=== PATIENT | male | born 1995 | race Caucasian/White ===

== ENCOUNTER 2020-03-02 05:55 | Emergency (ER) | payer MEDICAID, SELFPAY ==
--- NOTE | 2020-03-02 06:01 | ED.GENADULT ---
HPI - General Adult General Stated complaint: TOOTH PAIN Time Seen by Provider: 03/02/20 05:58 History of Present Illness HPI narrative: Brought in by EMS for dental pain. Prior to my arrival in the room he was shouting and making a scene. He was saying that no one is allowed to touch him. I went to evaluated him and he shouted fuck you . He admits to using meth tonight. Related Data Allergies Allergy/AdvReac Type Severity Reaction Status Date / Time aripiprazole Allergy Unknown SEVERE Unverified 08/18/16 13:28 VOMITTING Review of Systems Review of Systems: ROS unobtainable: Yes unobtainable due to mental status [facility] Social History Social History (Updated 03/02/20 @ 06:21 by Joseph Cotto MD) Substance use type: amphetamines Comments Unable to obtain Exam Const: General: healthy appearing, no acute distress and alert Resp: Effort & Inspection: normal respiratory effort Skin: General skin exam: normal color Neuro: General: moves all extremities Speech: normal speech Gait exam (Neuro): Normal gait present Psych: Speech and movement: Psychomotor agitation in speech present Attitude: Belligerent attititude/behavior present Medical Decision Making MDM Narrative Medical decision making narrative: Patient refused evaluation and was belligereant to myself and staff. He was in no distress and had no indication that he was suffering from any emergent medical condition. Discharge Plan Discharge Clinical Impression: Methamphetamine abuse Patient Disposition: Home, Self-Care Condition: Stable Instructions: Antibiotic Form, Methamphetamine Abuse (ED) Follow-up/Referrals: UNKNOWN,DOCTOR [Primary Care Provider] -
--- NOTE | 2020-03-02 06:20 | PC.NURSE ---
Pt was brought in by ems for tooth pain. When pt arrived he was acting out and yelling at staff. Pt was demanding pain medication and admitted to taking meth. Pt was yelling at dr and demanded pain medication and refused to be treated so he was asked to leave. Pt then stormed out through the ems doors.
== END 2020-03-02 06:26 | disposition home or self-care (01) ==
LOC: ANHED 06:26
DX: F15.10 Other stimulant abuse, uncomplicated (principal)
CPT/HCPCS: 99281

== ENCOUNTER 2022-03-15 19:46 | Emergency (ER) | payer BC, SELFPAY ==
--- NOTE | 2022-03-15 19:51 | ED.URI ---
HPI - URI/Sore Throat General Chief Complaint: Upper Respiratory Infection Stated Complaint: uri Time Seen by Provider: 03/15/22 19:51 Source: patient Mode of arrival: ambulatory Limitations: no limitations History of Present Illness HPI Narrative: Addison is a 26-year-old male patient presenting to clinic today with complaints of possible sinus infection x1 week. He reports he has had slight fever, chills, sinus congestion, headache, and postnasal drip. MD elicited complaint: sore throat and nasal congestion Related Data Home Medications Medication Instructions Recorded Confirmed divalproex 500 mg tablet,delayed mg PO 03/15/22 release haloperidol 5 mg tablet mg 03/15/22 oxcarbazepine 300 mg tablet mg 03/15/22 risperidone 4 mg tablet mg 03/15/22 Allergies Allergy/AdvReac Type Severity Reaction Status Date / Time aripiprazole Allergy Unknown SEVERE Unverified 03/15/22 19:50 VOMITTING Review of Systems Review of Systems: Pertinent positives per HPI. Patient denies any rash, headache, visual changes, dizziness, shortness of breath, chest pain, palpitations, nausea, vomiting, diarrhea, constipation, abdominal pain, or any urinary issues. [facility] Social History Social History Substance use type: amphetamines Comments At the time of my signature, I reviewed and agree with the nursing past medical, surgical, social, and family history. There is no relevant family history pertinent to the patient complaint. Exam Narrative: General: Well-developed, well nourished, in no apparent distress Head: Normocephalic, atraumatic Eyes: Pupils equally round and reactive to light bilaterally, EOM intact, sclera and conjunctive clear, no discharge, lids normal Ears: TMs intact and clear, ear canals clear, no drainage, grossly hearing normal. Nose: Nares patent, green nasal discharge, severe inflammation with white striae, maxillary and frontal sinus tenderness. Mouth: Oral pharynx without lesions or masses, good dentition, MMM. Postnasal drip Neck: Supple, trachea midline, no enlargement of anterior or posterior cervical nodes, no thyroid masses or goiter palpable. Cardio: Regular rate and rhythm, s1 and s2 normal, no murmur appreciated. Resp: Clear to auscultation bilaterally, no rhonchi, rales, wheezing or rubs Course Course Emergency Course: Portions of this record may have been created with voice recognition software. Level of Care: Express Care Visit Vital Signs Vital signs: Vital signs reviewed MDM - URI/Sore Throat MDM Narrative Medical decision making narrative: At the time of visit patient is resting comfortably on the exam table. I suspect patient has acute bacterial rhinosinusitis. I will treat with a prescriptions for some prednisone and Augmentin. Supportive measures were discussed with the patient he voiced understanding of discharge instructions and agrees to treatment plan. Differential Diagnosis Differential diagnosis: Likely upper respiratory infection, otitis media, sinusitis, viral infection, bronchitis, influenza, pharyngitis and other (COVID) Discharge Plan Discharge Clinical Impression: Acute bacterial rhinosinusitis Patient Disposition: Home, Self-Care Condition: Stable Instructions: Antibiotic Form, Rhinosinusitis (ED) Additional Instructions: Take prescription medications only as prescribed-prednisone and Augmentin Increase fluids and stay well hydrated Tylenol/motrin for pain/fever Flonase and OTC antihistamines as directed Vicks vapor rub to open sinuses Sinus rinses for congestion Cepacol spray, cough drops, throat lozenges, warm tea with honey/lemon, gargle salt water to soothe throat BRAT diet for diarrhea Clear liquids x 24 hours then advance as tolerated for nausea/vomiting May return to the clinic if symptoms worsen Go to the ED if you develop a worsening in your condition- high
[2022-03-15 19:52] VITALS: BP 171/90; PULSE 124; RESP 16; TEMP 37.8; O2SAT 99
== END 2022-03-15 20:02 | disposition home or self-care (01) ==
PROVIDERS: Emergency Provider Nurse Practitioner Family
DX: J01.90 Acute sinusitis, unspecified (principal); B96.89 Other specified bacterial agents as the cause of diseases classified elsewhere
CPT/HCPCS: 99213; G0463

== ENCOUNTER 2024-03-05 14:25 | Emergency (ER) | payer BC, SELFPAY ==
[2024-03-05 14:28] VITALS: BP 149/82; PULSE 85; RESP 16; TEMP 36.8; O2SAT 99
--- NOTE | 2024-03-05 15:28 | ED.MALEGU ---
HPI - Male Genitourinary General Chief complaint: Urogenital-Male Stated complaint: STD CHECK Time Seen by Provider: 03/05/24 14:33 Source: patient Mode of arrival: ambulatory Limitations: no limitations History of Present Illness [facility] Narrative: this is a 28-year-old male who is concerned for possible STD. Reports that he was with his partner had a lot attacks sex recently what she told him she had herpes. He noticed a few days ago he had a blister-like lesion on the left side of the groin. he reports chronic HBV and no new lesions regarding that. Denies penile discharge, testicular swelling or pain. Denies fevers, chills, fatigue. Related Data Home Medications Medication Instructions Recorded Confirmed divalproex 500 mg tablet,delayed mg PO 03/15/22 release haloperidol 5 mg tablet mg 03/15/22 oxcarbazepine 300 mg tablet mg 03/15/22 risperidone 4 mg tablet mg 03/15/22 Allergies Allergy/AdvReac Type Severity Reaction Status Date / Time aripiprazole Allergy Unknown SEVERE Unverified 03/15/22 19:50 VOMITTING Review of Systems Review of Systems: All systems as dictated in [facility] Social History Social History Substance use type: amphetamines Exam Narrative: GENERAL: Well-appearing, well-nourished, and in no acute distress. HEAD: Normocephalic, atraumatic. EYES: PERRLA and EOMI. ENT: Nares clear, no rhinorrhea or epistaxis. Mucous membranes moist. Oropharynx without tonsillar hypertrophy exudate or other lesions. NECK: Supple. No adenopathy or masses. CHEST: No respiratory distress. Clear to auscultation. No wheezes rales or rhonchi HEART: Regular rate and rhythm. No murmur heard. Normal peripheral pulses. ABDOMEN: Soft, nontender, nondistended, normal active bowel sounds. MSK: Normal range of motion. No edema. SKIN: Warm, dry, no rash. NEURO: Alert and oriented x4. No focal deficits. PSYCH: Normal mood and affect. : there is a vesicular appearing lesion that is close and located in left groin. 2 surrounding small erythematous macules. No surrounding erythema or induration. No chancre. No discharge. no scrotal swelling or tenderness. Course Vital Signs Vital signs: Vital Signs Temperature 98.3 F 03/05/24 14:28 Pulse Rate 85 03/05/24 14:28 Respiratory Rate 16 03/05/24 14:28 Blood Pressure 149/82 H 03/05/24 14:28 Pulse Oximetry 99 03/05/24 14:28 Oxygen Delivery Room Air 03/05/24 14:28 Temperature 98.3 F 03/05/24 14:28 Pulse Rate 85 03/05/24 14:28 Respiratory Rate 16 03/05/24 14:28 Blood Pressure 149/82 H 03/05/24 14:28 Pulse Oximetry 99 03/05/24 14:28 Oxygen Delivery Room Air 03/05/24 14:28 MDM - Male Genitourinary MDM Narrative Medical decision making narrative: This is a 28-year-old male who presents to the ED for chief complaint of general lesion in the pubic area after exposure to possible herpes. Vitals are normal. Exam remarkable for the above. He is requesting STD testing and is specifically concerned for possible herpes. Exam is consistent with herpes. A viral PCR swab was obtained but the patient wanted to be discharged prior to results. Told him that clinically this is consistent with herpes an Rx for Valtrex was given. Pt will be discharged in stable condition. Return precautions given and supportive measures discussed. Pt is understanding and agreeable with plan for discharge and follow-up with PCP. Discharge Plan Discharge Clinical Impression: Genital lesion, male Patient Disposition: Home, Self-Care Condition: Stable Instructions: Antibiotic Form Additional Instructions: your exam was concerning for possible herpes. Please take Valtrex twice a day for 1 week and then for any recurrent episodes take 1 g once daily for 5 days. Follow-up with PCP If you have any new or worsening symptoms please return to the ER for f
[2024-03-05 17:04] LABS: Trichomonas Vag PCR NOT DETECTED (NOT DETECTE)
[2024-03-05 17:26] LABS: Chlamydia trachomatis NOT DETECTED (NOT DETECTE); Neisseria gonorrhoeae PCR NOT DETECTED (NOT DETECTE)
[2024-03-09 06:33] LABS: Herpes Simplex Type 1 DNA PCR Not Detected (Not Detected); Herpes Simplex Type 2 DNA PCR Not Detected (Not Detected)
== END 2024-03-05 15:59 | disposition home or self-care (01) ==
PROVIDERS: Emergency Provider Physician Assistant
DX: N50.9 Disorder of male genital organs, unspecified (principal)
CPT/HCPCS: 36415; 87491; 87529; 87591; 87661; 99283

== ENCOUNTER 2024-05-27 17:26 | Emergency (ER) | payer BC, SELFPAY ==
[2024-05-27 17:23] VITALS: BP 129/81; PULSE 84; RESP 12; TEMP 36.6; O2SAT 100
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
[2024-05-27 18:04] LABS: Basophils Percent Auto 0.4 % (0.2-1.2); Eosinophils Absolute Auto 0.1 K/mm3 (0-0.3); Eosinophils Percent Auto 0.9 % (0-4.4); Hemoglobin 15.1 g/dL (14.0-18.0); Immature Granulocyte Absolute 0.01 K/mm3 (0.00-0.031); Immature Granulocyte Percent A 0.1 % (0-0.5); Lymphocytes Absolute Auto 2.59 K/mm3 (0.9-3.2); Lymphocytes Percent Auto 33.6 % (18.3-44.2); Mean Corpuscular HGB Conc 35.1 g/dl (32-36); Mean Corpuscular Hemoglobin 30.9 pg (26-34); Mean Corpuscular Volume 87.9 fl (80-100); Mean Platelet Volume 9.3 fl (7.4-10.4); Monocytes Absolute Auto 0.6 K/mm3 (0.1-0.6); Monocytes Percent Auto 7.8 % (2.6-8.5); Neutrophils Absolute Auto 4.4 K/mm3 (1.3-6.7); Neutrophils Percent Auto 57.2 % (45.5-73.1); Platelet Count Result 219 k/mm3 (150-375); Red Blood Count 4.89 M/mm3 (4.6-6.20); Red Cell Distribution Width 12.1 % (11.5-14.5); White Blood Count 7.7 K/mm3 (4.5-10.0)
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
[2024-05-27 18:14] LABS: Ethanol 210 mg/dL (<10)
[2024-05-27 18:26] LABS: Barbiturate Screen Urine Negative (Negative); Benzodiazepines Screen Urine Negative (Negative)
[2024-05-27 18:31] LABS: Alanine Aminotransferase 26 U/L (6-50); Alkaline Phosphatase 79 U/L (38-126); Anion Gap 7 mmol/L (4-12); Aspartate Amino Transferase 29 U/L (17-59); Bilirubin,Total 0.4 mg/dL (0.2-1.3); Blood Urea Nitrogen 28 mg/dL (9-20); Calcium 8.6 mg/dL (8.4-10.2); Carbon Dioxide 26 mmol/L (22-30); Chloride 106 mmol/L (98-107); Estimated Glomerular Filt Rate > 60; Glucose 96 mg/dL (65-110); Potassium 3.4 mmol/L (3.4-5.0); Sodium 139 mmol/L (137-145)
[2024-05-27 18:34] LABS: Cannabinoid Screen Urine Negative (Negative); Cocaine Screen Urine Negative (Negative); Methadone Screen Urine Negative (Negative); Opiate Screen Urine Negative (Negative); Phencyclidine Screen Urine Negative (Negative)
--- NOTE | 2024-05-27 18:48 | PC.NURSE ---
Pt. refused final set of vital signs. Pt. is A&Ox4.
[2024-05-27 18:58] LABS: Amphetamine Screen Urine Negative (Negative)
== END 2024-05-27 18:52 | disposition home or self-care (01) ==
PROVIDERS: Student in an Organized Health Care Education/Training Program; Emergency Provider Emergency Medicine
DX: F10.129 Alcohol abuse with intoxication, unspecified (principal); Y90.7 Blood alcohol level of 200-239 mg/100 ml
CPT/HCPCS: 36415; 80053; 80307; 82077; 85025; 99283

== ENCOUNTER 2024-06-03 11:18 | Emergency (ER) | payer BC, SELFPAY ==
--- NOTE | ~2024-06-03 | CT_ITS ---
CT brain wo con Ordering provider: Ebony Hamilton APRN History: 28 years Male with . altered mental status . Comparison: None. Technique: CT of the head without contrast. Radiation reduction technique utilized.The dose-length product was 605.33 mGy-cm. FINDINGS: BRAIN PARENCHYMA AND CSF SPACES: Hypodensity in the right temporal lobe is noted which may be artifac tual but acute infarct cannot be excluded. Clinical correlation and further evaluation with MRI is ad vised. No midline shift, mass effect or hemorrhage. The brain parenchyma and CSF spaces are otherwis e normal. VISUALIZED PARANASAL SINUSES: Bilateral maxillary, frontal and ethmoid sinus disease. MASTOIDS: Well aerated. BONES: The bones appear intact. SOFT TISSUES: Visualized nasopharynx is normal. Superficial soft tissues are normal. IMPRESSION: No acute intracranial findings. Pansinusitis Reviewed, dictated and finalized at location A. [facility]
[2024-06-03 11:22] VITALS: BP 110/71; PULSE 97; RESP 16; TEMP 36.5; O2SAT 97
[2024-06-03 11:39] LABS: Glucose Point of Care 209 mg/dl (65-105)
--- NOTE | 2024-06-03 11:45 | PC.NURSE ---
[employer] [place] [employer] [employer] TECHNICIAN FOUND IN PT'S POSSESSIONS. CHARLIE KANG FROM SECURITY WAS NOTIFIED, CAME DOWN TO ED TO SECURE THE PARAPHERNALIA.
[2024-06-03 12:00] VITALS: BP 107/69; PULSE 88; RESP 16; O2SAT 100
[2024-06-03 13:00] VITALS: BP 110/78; PULSE 76; RESP 16; O2SAT 100
[2024-06-03 13:30] VITALS: BP 117/81; PULSE 74; RESP 16; O2SAT 100
--- NOTE | 2024-06-03 13:48 | ED.ALCOHOL ---
HPI - Alcohol General Chief Complaint: Alcohol Stated Complaint: ?ETOH History of Present Illness HPI narrative: Patient is a 28-year-old male who presents to the ER the EMS for alcohol intoxication. He was seen in this ER for the same symptoms approximately 1 week ago. Patient is difficult to arouse the time of examination. He is unable to verbalize any medical history or current symptoms. Related Data Home Medications ?Medication ?Instructions ?Recorded ?Confirmed ?Last Taken ?Type divalproex 500 mg tablet,delayed mg PO 03/15/22 Unknown History release haloperidol 5 mg tablet mg 03/15/22 Unknown History oxcarbazepine 300 mg tablet mg 03/15/22 Unknown History risperidone 4 mg tablet mg 03/15/22 Unknown History Allergies Allergy/AdvReac Type Severity Reaction Status Date / Time aripiprazole Allergy Unknown SEVERE Unverified 03/15/22 19:50 VOMITTING Review of Systems Review of Systems: All systems reviewed & are unremarkable except as noted in HPI and below PMFSH Social History Social History Substance use type: amphetamines Exam Narrative: GENERAL: Well appearing, well-nourished, non-toxic, in no acute distress. Lethargic HEAD: Normocephalic, atraumatic. NECK: Supple. No adenopathy, no masses. RESPIRATORY: Airway patent, respirations nonlabored. Clear to auscultation bilaterally, no rales, rhonchi, wheezing. CARDIOVASCULAR: Regular rate and rhythm without murmurs, rubs, or gallops. Peripheral pulses 2+ and equal bilaterally. ABDOMINAL: Soft, nontender, nondistended, no hepatosplenomegaly. Normoactive BS. MUSCULOSKELETAL: Moves all extremities. Strength/ROM intact without gross deformities. SKIN: Warm, dry, normal color. No rashes. NEURO: Unable to assess PSYCHIATRIC: Abnormal interaction. Course Vital Signs Vital signs: Vital Signs Temperature 36.5 C 06/03/24 11:22 Pulse Rate 97 06/03/24 11:22 Respiratory Rate 16 06/03/24 11:22 Blood Pressure 110/71 06/03/24 11:22 Pulse Oximetry 97 06/03/24 11:22 Oxygen Delivery Room Air 06/03/24 11:22 Temperature 36.5 C 06/03/24 11:22 Pulse Rate 74 06/03/24 13:30 Respiratory Rate 16 06/03/24 13:30 Blood Pressure 117/81 06/03/24 13:30 Pulse Oximetry 100 06/03/24 13:30 Oxygen Delivery Room Air 06/03/24 11:22 MDM - Alcohol MDM Narrative Medical decision making narrative: Patient is a 28-year-old male who presents to the ER the EMS for alcohol intoxication. He was seen in this ER for the same symptoms approximately 1 week ago. Patient is difficult to arouse the time of examination. He is unable to verbalize any medical history or current symptoms. Labs Ordered: CBC, CMP, PTT, INR, ethanol, urinalysis Imaging Ordered: CT brain Results: No acute intracranial findings. Pansinusitis Diagnosis: acute alcohol intoxication Patient Education/Shared MDM: 1530- Upon reassessment patient is alert and oriented x4. Results of ER visit shared with pt. He denies any current pain or discomfort. Patient advised to drink lots of water. He verbalizes understanding and is in agreement with plan. All questions answered. Vital signs stable at time of discharge. Differential Diagnosis Differential diagnosis: Likely hypomagnesemia, alcohol intoxication and other (dehydration) Lab Data Attestation: I reviewed the patient's lab results. 06/03/24 12:22 06/03/24 12:22 Labs: Lab Results 06/03/24 06/03/24 06/03/24 Range/Units 11:35 12:22 13:57 WBC 7.5 (4.5-10.0) K/mm3 RBC 4.96 (4.6-6.20) M/mm3 Hgb 15.6 (14.0-18.0) g/dL Hct 44.5 (42.0-52.0) % MCV 89.7 (80-100) fl MCH 31.5 (26-34) pg MCHC 35.1 (32-36) g/dl RDW 12.3 (11.5-14.5) % Plt Count 224 (150-375) k/mm3 MPV 9.9 (7.4-10.4) fl Immature Gran % (Auto) 0.3 (0-0.5) % Neut % (Auto) 64.0 (45.5-73.1) % Lymph % (Auto) 29.7 (18.3-44.2) % [place] % (Auto) 4.7 (2.6-8.5) % Eos % (Auto) 0.9 (0-4.4) % Baso % (Auto) 0.4 (0.2-1.2) % Lymph # (Auto) 2.21 (0.9-3.2) K/mm3 [place] # (Auto) 0.4 (0.1-0.6) K/mm3 Eos # (Auto) 0.1 (0-0.3) K/mm3 Baso # (Auto) 0.0 (0.0-0.1) K/mm3 Abs Immat Gran (auto) 0.02 (0.00-0.031) K/mm3 Absolute Neuts (auto) 4.8 (1.3-6.7) K/mm3 Absolute Nucleated RBC 0.000 (0.0-0.012) K/mm3 Nucleated RBC % 0.0 (0.0-0.2) % PT 13.3 (11.1-14.7) Seconds INR 1.0 APTT 31.3 (22.3-36.8) Seconds Sodium 140 (137-145) mmol/L Potassium 4.0 (3.4-5.0) mmol/L Chloride 108 H (98-107) mmol/L Carbon Dioxide 26 (22-30) mmol/L Anion Gap 6 (4-12) mmol/L BUN 20 (9-20) mg/dL Creatinine 0.80 (0.7-1.3) mg/dL Estim Creat Clear Calc Not Reportable Estimated GFR > 60 (59 - ) Glucose 83 (65-110) mg/dL POC Capillary Glucose 209 H (65-105) mg/dl Calcium 9.0 (8.4-10.2) mg/dL Total Bilirubin 0.3 (0.2-1.3) mg/dL AST 57 (17-59) U/L ALT 37 (6-50) U/L Alkaline Phosphatase 82 (38-126) U/L Total Protein 7.0 (6.3-8.2) g/dL Albumin 4.3 (3.5-5.1) g/dL Urine Color Yellow (Yellow) Urine Appearance Clear (Clear) Urine pH 6.0 (5.0-9.0) Ur Specific [place] 1.010 (1.001-1.035) Urine Protein Negative (Negative) mg/dL Urine Glucose (UA) Negative (Negative) mg/dL Urine Ketones Negative (Negative) mg/dL Ur Blood (Man) Negative (Negative) Urine Nitrate Negative (Negative) Urine Bilirubin Negative (Negative) Urine Urobilinogen 0.2 (<2.0) mg/dL Leukocyte Esterase Rfl Negative (Negative) ROGER/UL Ethyl Alcohol 259 (<10) mg/dL Imaging Data Attestation: I personally reviewed and interpreted this imaging study as follows: Radiologist's impression: ITS Impressions Head CT 06/03/24 14:10 IMPRESSION: No acute intracranial findings. Pansinusitis Discharge Plan Discharge Clinical Impression: Alcoholic intoxication Patient Disposition: Home, Self-Care Condition: Stable Instructions: Antibiotic Form, Alcohol Intoxication (ED), Alcohol Dependence (ED) Additional Instructions: Please return to the ER with an worsening symptoms. Follow-up with primary care provider as soon as possible. Patient Language: Tamazight Prescriptions: No Action haloperidol 5 mg tablet risperidone 4 mg tablet oxcarbazepine 300 mg tablet divalproex 500 mg tablet,delayed release (DR/EC) PO prednisone 20 mg tablet 40 mg PO DAILY 5 Days Qty: 10 0RF amoxicillin-pot clavulanate 875-125 mg tablet 1 tablet PO Q12H 10 Days Qty: 20 0RF valacyclovir [Valtrex] 1 gram tablet 1,000 mg PO Q12H 7 Days Qty: 14 1RF Follow-up/Referrals: UNKNOWN,DOCTOR [Primary Care Provider] - Time of Disposition: 15:42
[2024-06-03 14:00] VITALS: BP 112/73; PULSE 83; RESP 14; O2SAT 100
[2024-06-03 14:04] LABS: Add Urine Microscopic? NO; Appearance Urine Clear (Clear); Bilirubin Urine Negative (Negative); Blood Urine Negative (Negative); Color Urine Yellow (Yellow); Glucose Urine UA Negative (Negative); Ketones Urine Negative (Negative); Leukocyte Esterase Ur Negative LEU/UL (Negative); Nitrate Urine Negative (Negative); Protein Urine Negative (Negative); Urobilinogen Urine 0.2 mg/dL (<2.0)
[2024-06-03 14:05] LABS: Basophils Percent Auto 0.4 % (0.2-1.2); Eosinophils Absolute Auto 0.1 K/mm3 (0-0.3); Eosinophils Percent Auto 0.9 % (0-4.4); Hematocrit 44.5 % (42.0-52.0); Hemoglobin 15.6 g/dL (14.0-18.0); Immature Granulocyte Absolute 0.02 K/mm3 (0.00-0.031); Immature Granulocyte Percent A 0.3 % (0-0.5); Lymphocytes Absolute Auto 2.21 K/mm3 (0.9-3.2); Lymphocytes Percent Auto 29.7 % (18.3-44.2); Mean Corpuscular HGB Conc 35.1 g/dl (32-36); Mean Corpuscular Hemoglobin 31.5 pg (26-34); Mean Corpuscular Volume 89.7 fl (80-100); Mean Platelet Volume 9.9 fl (7.4-10.4); Monocytes Absolute Auto 0.4 K/mm3 (0.1-0.6); Monocytes Percent Auto 4.7 % (2.6-8.5); Neutrophils Absolute Auto 4.8 K/mm3 (1.3-6.7); Platelet Count Result 224 k/mm3 (150-375); Red Blood Count 4.96 M/mm3 (4.6-6.20); Red Cell Distribution Width 12.3 % (11.5-14.5); White Blood Count 7.5 K/mm3 (4.5-10.0)
[2024-06-03 14:10] LABS: Alanine Aminotransferase 37 U/L (6-50); Albumin Level 4.3 g/dL (3.5-5.1); Alkaline Phosphatase 82 U/L (38-126); Anion Gap 6 mmol/L (4-12); Aspartate Amino Transferase 57 U/L (17-59); Bilirubin,Total 0.3 mg/dL (0.2-1.3); Blood Urea Nitrogen 20 mg/dL (9-20); Carbon Dioxide 26 mmol/L (22-30); Chloride 108 mmol/L (98-107); Estimated Glomerular Filt Rate > 60; Glucose 83 mg/dL (65-110); Sodium 140 mmol/L (137-145)
[2024-06-03 14:12] LABS: Ethanol 259 mg/dL (<10)
[2024-06-03 14:20] LABS: Prothrombin Time 13.3 Seconds (11.1-14.7)
[2024-06-03 14:21] LABS: Partial Thromboplastin Time 31.3 Seconds (22.3-36.8)
[2024-06-03] MEDS: SODIUM CHLORIDE 0.9% IV 1,000 ML 999 ML IV CONT (14:51)
[2024-06-03 15:00] VITALS: BP 105/76; PULSE 76; RESP 16; O2SAT 100
== END 2024-06-03 16:00 | disposition home or self-care (01) ==
PROVIDERS: Emergency Provider Registered Nurse
DX: F10.129 Alcohol abuse with intoxication, unspecified (principal); J32.4 Chronic pansinusitis; Y90.8 Blood alcohol level of 240 mg/100 ml or more
CPT/HCPCS: 36415; 70450; 80053; 81003; 82077; 82948; 85025; 85610; 85730; 96360; 99284; J7030

== ENCOUNTER 2024-06-11 15:08 | Emergency (ER) | payer BC, SELFPAY ==
--- NOTE | ~2024-06-11 | XR_ITS ---
EXAMINATION: XR chest 1V portable DATE: 06/11/2024 16:05 INDICATION: Alcohol intoxication. TECHNIQUE: A single frontal view of the chest was obtained. COMPARISON: Chest 2 views 05/06/2010 FINDINGS: The chest demonstrates clear lungs without pneumonia, pleural effusion, or pneumothorax. Th e heart size is normal. IMPRESSION: 1. No acute cardiopulmonary disease. Reviewed, dictated and finalized at location A. STICAL CARPENTER
[2024-06-11 15:16] VITALS: BP 132/92; PULSE 89; RESP 20; TEMP 36.2; O2SAT 100
--- NOTE | 2024-06-11 15:18 | ED.GENADULT ---
HPI - General Adult General Chief complaint: Alcohol Stated complaint: requesting medical evaluation Source: EMS Mode of arrival: EMS Limitations: intoxication History of Present Illness HPI narrative: 28 years old white male came to the emergency room by ambulance. Patient was found by the police acting funny in the street, patient is homeless, the report was patient consumed 750 mL of whiskey over 2 hours. Unknown drug use. Related Data Home Medications ?Medication ?Instructions ?Recorded ?Confirmed ?Last Taken ?Type divalproex 500 mg tablet,delayed mg PO 03/15/22 Unknown History release haloperidol 5 mg tablet mg 03/15/22 Unknown History oxcarbazepine 300 mg tablet mg 03/15/22 Unknown History risperidone 4 mg tablet mg 03/15/22 Unknown History Allergies Allergy/AdvReac Type Severity Reaction Status Date / Time aripiprazole AdvReac Severe SEVERE Verified 06/11/24 16:22 VOMITTING Review of Systems Review of Systems: ROS unobtainable: Yes unobtainable due to mental status PMFSH Social History Social History Substance use type: amphetamines Exam Narrative: General appearance: Well-developed, well-nourished , restless, does not follow verbal commands, seeing none since, Skin: Normal color Head: Normocephalic, nontraumatic Eyes: Clear conjunctiva Neck: Supple, nontender Chest and respiratory: Airway patent, no respiratory distress, no accessory muscle use Heart: Regular rate/rhythm Abdomen: Soft, nontender, no organomegaly, quiet bowel sounds Musculoskeletal: Normal range of motion, nontender back Neurologic: Alert , disoriented time 4 Course Vital Signs Vital signs: Vital Signs Temperature 36.2 C L 06/11/24 15:16 Pulse Rate 89 06/11/24 15:16 Respiratory Rate 20 06/11/24 15:16 Blood Pressure 132/92 H 06/11/24 15:16 Pulse Oximetry 100 06/11/24 15:16 Oxygen Delivery Room Air 06/11/24 15:16 Temperature 36.2 C L 06/11/24 15:16 Pulse Rate 71 06/11/24 20:16 Respiratory Rate 16 06/11/24 20:16 Blood Pressure 119/88 06/11/24 20:16 Pulse Oximetry 99 06/11/24 20:16 Oxygen Delivery Room Air 06/11/24 15:16 Medical Decision Making [facility] Narrative Medical decision making narrative: PATIENT CAME BY AMBULANCE/POLICE WITH POSSIBLE ALCOHOL INTOXICATION, PATIENT IS HOMELESS VITAL SIGNS ON ARRIVAL SHOWED INSIGNIFICANT ABNORMALITY PHYSICAL EXAMINATION SHOWING RESTLESS, COMBATIVE AND AGITATED PATIENT. UNCOOPERATIVE WITH QUESTIONS, DOES NOT FOLLOW COMMANDS. DIFFERENTIAL DIAGNOSIS INCLUDE ALCOHOL INTOXICATION, DRUG ABUSE, BLOOD WORKUP TODAY INCLUDES CBC, CMP, ALCOHOL LEVEL,SHOWED ALCOHOL LEVEL 236. OTHERWISE INSIGNIFICANT ABNORMALITY URINE DRUG SCREEN CAME BACK NEGATIVE FOR DRUGS CHEST X-RAY SHOWED NO ACUTE ABNORMALITY PATIENT RECEIVED 5 MG OF HALDOL IM AND 2 MG OF ATIVAN IM. PATIENT WAS AGITATED, DANGERS TO HIMSELF AND TO THE STAFF. PATIENT RECEIVED 2 L OF NORMAL SALINE IV. Differential Diagnosis Differential Diagnosis: ABOVE Vital Signs Vital Signs: Vital Signs Temperature 36.2 C L 06/11/24 15:16 Pulse Rate 89 06/11/24 15:16 Respiratory Rate 20 06/11/24 15:16 Blood Pressure 132/92 H 06/11/24 15:16 Pulse Oximetry 100 06/11/24 15:16 Oxygen Delivery Room Air 06/11/24 15:16 Temperature 36.2 C L 06/11/24 15:16 Pulse Rate 71 06/11/24 20:16 Respiratory Rate 16 06/11/24 20:16 Blood Pressure 119/88 06/11/24 20:16 Pulse Oximetry 99 06/11/24 20:16 Oxygen Delivery Room Air 06/11/24 15:16 Lab Data 06/11/24 16:00 06/11/24 16:00 Labs: Lab Results 06/11/24 06/11/24 Range/Units 15:27 16:00 WBC 6.6 (4.5-10.0) K/mm3 RBC 5.12 (4.6-6.20) M/mm3 Hgb 16.0 (14.0-18.0) g/dL Hct 45.6 (42.0-52.0) % MCV 89.1 (80-100) fl MCH 31.3 (26-34) pg MCHC 35.1 (32-36) g/dl RDW 12.2 (11.5-14.5) % Plt Count 208 (150-375) k/mm3 MPV 9.7 (7.4-10.4) fl Immature Gran % (Auto) 0.5 (0-0.5) % Neut % (Auto) 58.9 (45.5-73.1) % Lymph % (Auto) 31.8 (18.3-44.2) % Harris % (Auto) 6.2 (2.6-8.5) % Eos % (Auto) 2.1 (0-4.4) % Baso % (Auto) 0.5 (0.2-1.2) % Lymph # (Auto) 2.11 (0.9-3.2) K/mm3 Harris # (Auto) 0.4 (0.1-0.6) K/mm3 Eos # (Auto) 0.1 (0-0.3) K/mm3 Baso # (Auto) 0.0 (0.0-0.1) K/mm3 Abs Immat Gran (auto) 0.03 (0.00-0.031) K/mm3 Absolute Neuts (auto) 3.9 (1.3-6.7) K/mm3 Absolute Nucleated RBC 0.000 (0.0-0.012) K/mm3 Nucleated RBC % 0.0 (0.0-0.2) % Sodium 142 (137-145) mmol/L Potassium 4.2 (3.4-5.0) mmol/L Chloride 113 H (98-107) mmol/L Carbon Dioxide 24 (22-30) mmol/L Anion Gap 5 (4-12) mmol/L BUN 14 D (9-20) mg/dL Creatinine 0.70 (0.7-1.3) mg/dL Estim Creat Clear Calc 111 ml/min Estimated GFR > 60 (59 - ) Glucose 99 (65-110) mg/dL Calcium 9.0 (8.4-10.2) mg/dL Total Bilirubin 0.4 (0.2-1.3) mg/dL AST 41 (17-59) U/L ALT 37 (6-50) U/L Alkaline Phosphatase 77 (38-126) U/L Total Protein 6.0 L (6.3-8.2) g/dL Albumin 4.0 (3.5-5.1) g/dL Urine Color Yellow (Yellow) Urine Appearance Clear (Clear) Urine pH 6.0 (5.0-9.0) Ur Specific [place] 1.003 (1.001-1.035) Urine Protein Negative (Negative) mg/dL Urine Glucose (UA) Negative (Negative) mg/dL Urine Ketones Negative (Negative) mg/dL Ur Blood (Man) Negative (Negative) Urine Nitrate Negative (Negative) Urine Bilirubin Negative (Negative) Urine Urobilinogen 0.2 (<2.0) mg/dL Leukocyte Esterase Rfl Negative (Negative) ROGER/UL Urine Opiates Screen Negative (Negative) Urine Methadone Screen Negative (Negative) Ur Barbiturates Screen Negative (Negative) Ur Phencyclidine Scrn Negative (Negative) Ur Amphetamine Screen Negative (Negative) U Benzodiazepines Scrn Negative (Negative) Urine Cocaine Screen Negative (Negative) U Cannabinoids Screen Negative (Negative) Ethyl Alcohol 236 (<10) mg/dL Critical Care Time Critical Care Time Critical Care Time: Yes Total Critical Care Time: 30 Discharge Plan Discharge Clinical Impression: Alcoholic intoxication, Homeless Patient Disposition: Home, Self-Care Condition: Improved Instructions: Alcohol Intoxication (ED) Additional Instructions: RETURN IF SYMPTOMS ARE WORSENING , CALL YOUR FAMILY PHYSICIAN FOR APPOINTMENT, TAKE TYLENOL NEEDED FOR ACHES AND PAIN, CONTINUE HOME MEDICATIONS. Patient Language: Belarusian Prescriptions: No Action haloperidol 5 mg tablet risperidone 4 mg tablet oxcarbazepine 300 mg tablet divalproex 500 mg tablet,delayed release (DR/EC) PO prednisone 20 mg tablet 40 mg PO DAILY 5 Days Qty: 10 0RF amoxicillin-pot clavulanate 875-125 mg tablet 1 tablet PO Q12H 10 Days Qty: 20 0RF valacyclovir [Valtrex] 1 gram tablet 1,000 mg PO Q12H 7 Days Qty: 14 1RF Follow-up/Referrals: UNKNOWN,DOCTOR [Primary Care Provider] -
--- NOTE | 2024-06-11 15:20 | ECG_ITS ---
Test Date: 2024-06-11 16:26:52 Measurements Intervals [place] Rate: 75 P: 76 NC: 167 QRS: 80 QRSD: 95 T: 63 QT: 404 QTc: 452 Interpretive Statements SINUS RHYTHM POSSIBLE LEFT ATRIAL ENLARGEMENT [-0.1mV P-WAVE IN V1/V2] POSSIBLE RIGHT VENTRICULAR CONDUCTION DELAY [RSR (QR) IN V1/V2] ABNORMAL ECG No previous ECG available for comparison Electronically Signed On 06-12-2024 12:05:04 [employer]ION PI[employer]URE SCENE BUILDER by Damian Meyer M.D.
[2024-06-11] MEDS: HALOPERIDOL LACTATE 5 MG/ML VIAL IM (15:30)
[2024-06-11] MEDS: LORazepam INJ (*CRX) 2 MG/ML VIAL IM (15:30)
[2024-06-11 15:33] LABS: Add Urine Microscopic? NO; Appearance Urine Clear (Clear); Bilirubin Urine Negative (Negative); Blood Urine Negative (Negative); Color Urine Yellow (Yellow); Glucose Urine UA Negative (Negative); Ketones Urine Negative (Negative); Leukocyte Esterase Ur Negative LEU/UL (Negative); Nitrate Urine Negative (Negative); Protein Urine Negative (Negative); Specific Grav Ur 1.003 (1.001-1.035); Urobilinogen Urine 0.2 mg/dL (<2.0)
--- NOTE | 2024-06-11 15:36 | PC.NURSE ---
pt keeps attempting to get out of bed, pt continues to grab at female staff. pt is also spitting at staff.
[2024-06-11 16:11] LABS: Basophils Percent Auto 0.5 % (0.2-1.2); Eosinophils Absolute Auto 0.1 K/mm3 (0-0.3); Eosinophils Percent Auto 2.1 % (0-4.4); Hematocrit 45.6 % (42.0-52.0); Immature Granulocyte Absolute 0.03 K/mm3 (0.00-0.031); Immature Granulocyte Percent A 0.5 % (0-0.5); Lymphocytes Absolute Auto 2.11 K/mm3 (0.9-3.2); Lymphocytes Percent Auto 31.8 % (18.3-44.2); Mean Corpuscular HGB Conc 35.1 g/dl (32-36); Mean Corpuscular Hemoglobin 31.3 pg (26-34); Mean Corpuscular Volume 89.1 fl (80-100); Mean Platelet Volume 9.7 fl (7.4-10.4); Monocytes Absolute Auto 0.4 K/mm3 (0.1-0.6); Monocytes Percent Auto 6.2 % (2.6-8.5); Neutrophils Absolute Auto 3.9 K/mm3 (1.3-6.7); Neutrophils Percent Auto 58.9 % (45.5-73.1); Platelet Count Result 208 k/mm3 (150-375); Red Blood Count 5.12 M/mm3 (4.6-6.20); Red Cell Distribution Width 12.2 % (11.5-14.5); White Blood Count 6.6 K/mm3 (4.5-10.0)
[2024-06-11 16:17] LABS: Ethanol 236 mg/dL (<10)
[2024-06-11] MEDS: SODIUM CHLORIDE 0.9% IV 1,000 ML 999 ML IV CONT ×2 (16:21)
[2024-06-11 17:04] VITALS: BP 108/72; PULSE 78; RESP 20; O2SAT 100
[2024-06-11 17:27] LABS: Alanine Aminotransferase 37 U/L (6-50); Alkaline Phosphatase 77 U/L (38-126); Anion Gap 5 mmol/L (4-12); Aspartate Amino Transferase 41 U/L (17-59); Bilirubin,Total 0.4 mg/dL (0.2-1.3); Blood Urea Nitrogen 14 mg/dL (9-20); Carbon Dioxide 24 mmol/L (22-30); Chloride 113 mmol/L (98-107); Estimated CRCL calculation 111 ml/min; Estimated Glomerular Filt Rate > 60; Glucose 99 mg/dL (65-110); Potassium 4.2 mmol/L (3.4-5.0); Sodium 142 mmol/L (137-145)
[2024-06-11 17:39] LABS: Amphetamine Screen Urine Negative (Negative); Barbiturate Screen Urine Negative (Negative); Benzodiazepines Screen Urine Negative (Negative); Cannabinoid Screen Urine Negative (Negative); Cocaine Screen Urine Negative (Negative); Methadone Screen Urine Negative (Negative); Opiate Screen Urine Negative (Negative); Phencyclidine Screen Urine Negative (Negative)
[2024-06-11 17:46] VITALS: BP 118/83; PULSE 71; RESP 20; O2SAT 100
[2024-06-11 18:31] VITALS: BP 105/70; PULSE 77; RESP 18; O2SAT 100
[2024-06-11 20:16] VITALS: BP 119/88; PULSE 71; RESP 16; O2SAT 99
--- NOTE | 2024-06-11 22:47 | PC.NURSE ---
RN went to discharge pt and gave discharge instructions. RN woke pt up and went over discharge instructions and states that we need pt to get dresed and head to the waiting room. Pt states You're still standing here, you haven't left yet, are you going to watch me change . This RN states I will give pt privacy and be back a in a few. RN came back five minutes later and noticed pt fell back asleep and was still in gown. cosmetics demonstrator notified and verbally states to have senior information security consultant him out.
[2024-06-11 22:52] VITALS: BP 121/78; PULSE 70; RESP 18; O2SAT 100
--- OUTSIDE RECORDS SUMMARY | 2024-06-18 18:30 | XMS_ITS | Clinical Summary ---
Author Organization [facility] Address [address] [place] [address] Care Team Providers Care Director Patient Financial Services Name Role Phone Unavailable Primary Care Provider Unavailabl e Source Comments [facility],non-owned Affiliates and Associated Physician Practices is amultiple site organization consisting of ambulatory clinics and hospital sitesin [place], [place], [place] and [place]. This disclosure is being madepursuant to the Care Everywhere program and may not contain all information available regarding this patient. Last updated 18.[facility] Active Problems Problem Noted Date Diagnosed Date Major depressive disorder, single episode 2013 Suicidal ideations 10/05/2013 Family History Medical History Relation Name Comments Alcohol abuse Maternal Grandfather Alcohol abuse Maternal Grandmother Depression Mother Relation Name Status Comments Maternal Grandfather Maternal Grandmother Mother Social History Tobacco Use Types Packs/Day Years Used Date Smoking Tobacco: Every Day Cigarettes Alcohol Use Standard Drinks/Week Comments No 0 (1 standard drink = 0.6 oz pur e alcohol) Sex and Gender Information Value Date Recorded Sex Assigned at Not on file Gender Identity Not on file Sexual Orientation Not on file Last Filed Vital Signs Vital Sign Reading Time Taken Comments Blood Pressure 107/59 10/05/2013 9:00 AM CDT Pulse 80 10/05/2013 9:00 AM CDT Temperature 36.2 ??C (97.2 ??F) 10/05/2013 9:00 AM CD T Respiratory Rate 18 10/05/2013 9:00 AM CDT Oxygen Saturation 100% 10/05/2013 9:00 AM CDT Inhaled Oxygen Concentration - - Weight 66.7 kg (147 lb) 10/02/2013 6:30 AM CDT Height 180.3 cm (5' 11 ) 10/02/2013 6:30 AM CDT Body Mass Index 20.5 10/02/2013 6:30 AM CDT Plan of Treatment Health Maintenance Due Date Last Done Comments PNEUMOCOCCAL VACCINE (1 of 2 - PCV) 08/23/1999 HIV SCREENING 2008 HEPATITIS C SCREENING 08/18/2011 DTAP/TDAP/TD VACCINES (1 - Tdap) 2012 HEPATITIS B VACCINE (1 of 3 - 19+ 3-dose series) 2012 DEPRESSION SCREENING 06/18/2023 COVID-19 VACCINE (2023-2 5 season) 2024 INFLUENZA VACCINE (#1) 2024 ZOSTER VACCINE (1 of 2) 08/23/2043 HIB VACCINE Aged Out No longer eligi ble based on patient's age to complete this topic HPV VACCINE Aged Out No longer eligi ble based on patient's age to complete this topic MENINGOCOCCAL VACCINE Aged Out No mohinder yvonne eligible based on patient's age to complete this topic
--- OUTSIDE RECORDS SUMMARY | 2024-06-18 18:30 | XMS_ITS | Patient Health Summary ---
Author Organization [facility] Address [address] [place] [address] Care Team Providers Care Blankmaker Name Role Phone Unavailable Primary Care Provider Unavailabl e Note from [facility],non-owned Affiliates and Associated Physician Practices is amultiple site organization consisting of ambulatory clinics and hospital sitesin [place], [place], [place] and [place]. This disclosure is being madepursuant to the Care Everywhere program and may not contain all information available regarding this patient. Last updated 18.[facility] Active Problems Problem Noted Date Diagnosed Date Major depressive disorder, single episode 2013 Suicidal ideations 10/05/2013 Social History Tobacco Use Types Packs/Day Years [...] Mass Index 20.5 10/02/2013 6:30 AM CDT Procedures * DRUG ABUSE PANEL 10-20+ETHANOL URINE NO CONFIRM(Performed 10/04/2013) * URINALYSIS REFLEX TO MICROSCOPIC NO CULTURE(Performed 10/02/2013) * DRUG ABUSE PANEL 10-20+ETHANOL URINE NO CONFIRM(Performed 10/02/2013) * CBC W AUTO DIFFERENTIAL(Performed 10/02/2013) * CBC W AUTO DIFFERENTIAL(Performed 10/02/2013) * COMPREHENSIVE METABOLIC PANEL(Performed 10/02/2013) * EKG 12-LEAD(Performed 10/02/2013) Results * DRUG ABUSE PANEL 10-20+ETHANOL URINE NO CONFIRM (10/04/2013 8:16 AM CDT) Only the most recent of2 resultswithin the time period is included. Amphetamines Screen Urine Negative Negative: < 1000 ng/mL [facility] Barbiturates Screen Urine Negative Negative: < 200 ng/mL [facility] Benzodiazepine Screen Urine Negative Negative: < 200 ng/mL [facility] Opiates Urine Negative Negative: < 300 ng/mL [facility] Cocaine Metabolites Urine Negative Negative: < 300 ng/mL [facility] Phencyclidine Screen Urine Negative Negative: < 25 ng/ml [facility] Cannabinoids Screen Urine Negative Negative: <50 ng/mL [facility] Methadone Screen Urine Negative Negative: < 300 ng/mL [facility] Urine specimen (specimen) URINE / Unknown 10/04/2013 8:16 AM CDT 10/04/2013 8:30 AM CDT Narrative [facility] - 10/04/2013 9:27 AM CDT The Urine Toxicology Screening Panel does not screen for Propoxyphene, Meprobamate, Carisoprodol, Trazodone, [id number] medications and/or volatiles (Acetone, Isopropanol, Methanol or Ethylene Glycol). Ethanol, Salicylate, Acetaminophen, Tricyclic Antidepressants and several therapeutic drugs may be individually assayed in serum or plasma specimen. Toxicology testing by the [facility] is an aid to medical diagnosis and treatment of patients. No documented chain of custody was maintained. Results are intended to be used for clinical purposes only. ? Desiree Holden MD LAB - URINE CHEMISTR Y ORDERABLES Performing Organization Address [facility] de Phone Number [address] [phone] * (ABNORMAL) URINALYSIS REFLEX TO MICROSCOPIC NO CULTURE (10/02/2013 6:30 PM CDT) Color UA Yellow Straw, Yellow, Colorless, Light Yellow [facility] Clarity UA Clear Clear [facility] Specific [place]ger UA 1.012 1.001 - 1.030 [facility] pH UA 6.5 5.0 - 8.0 [facility] Protein UA Negative <=20 mg/dL [facility] Glucose UA Negative Negative mg/dL [facility] Ketone UA Negative Negative mg/dL [facility] Bilirubin UA Negative Negative mg/dL [facility] Blood UA Negative Negative [facility] Nitrite UA Negative Negative [facility] Leukocyte Esterase Negative Negative [facility] Urobilinogen UA <2.0 <2.0 mg/dL [facility] RBC UA 3 0 - 8 /HPF [facility] WBC UA <1 0 - 2 /HPF [facility] Mucus UA Many(A) None /LPF [facility] Urine specimen (specimen) 10/02/2013 6:30 PM CDT 10/02/2013 6:52 PM CDT Hung Gamez MD LAB - URINAL YSIS ORDERABLES Performing Organization Address [facility] de Phone Number [address] [phone] * (ABNORMAL) CBC W AUTO DIFFERENTIAL (10/02/2013 9:51 AM CDT) Only the most recent of2 resultswithin the time period is included. WBC 7.3 3.5 - 10.5 10? 3 /uL [facility] RBC 5.13 4.30 - 5.70 10? 6 /uL [facility] Hemoglobin 16.0 13.5 - 17.5 g/dL [facility] Hematocrit 44.3 39.0 - 50.0 % [facility] MCV 86.4 81.0 - 97.0 fL [facility] MCH 31.2 28.0 - 34.0 pg [facility] MCHC 36.1(H) 32.0 - 36.0 g/dL [facility] Platelet Count 159 150 - 400 10? 3 /uL [facility] RDW-SD 38.9 36.0 - 50.0 fL [facility] RDW-CV 12.4 11.2 - 14.8 % [facility] MPV 11.0 9.3 - 12.8 fL [facility] Neutrophils % 65.9 35.0 - 70.0 % [facility] Lymphocytes % 23.4 19.7 - 55.1 % [facility] Monocytes % 9.3 3.0 - 15.0 % [facility] Eosinophils % 1.1 0.0 - 6.0 % [facility] Basophil % 0.3 0.0 - 1.5 % [facility] Neutrophils Absolute 4.8 1.6 - 7.0 10? 3 /uL [facility] Lymphocyte Absolute 1.7 0.8 - 2.9 10? 3 /uL [facility] Monocytes Absolute 0.68(H) 0.14 - 0.66 10? 3 /uL [facility] Eosinophils Absolute 0.08 0.00 - 0.22 10? 3 /uL [facility] Basophils Absolute 0.02 0.00 - 0.06 10? 3 /uL [facility] Blood specimen (specimen) BLOOD SPECIMEN / Unknown 10/02/2013 9:51 AM CDT 10/02/2013 10:04 AM CDT Hung Gamez MD LAB - HEMATO LOGY ORDERABLES [facility] [address] [phone] * (ABNORMAL) COMPREHENSIVE METABOLIC PANEL (10/02/2013 9:51 AM CDT) BUN 11 7 - 26 mg/dL [facility] Anion Gap 13 8 - 18 [facility] BUN/Creatinine Ratio 12 7 - 23 [facility] Osmolality Calculated 276 270 - 300 mOsm/kg [facility] Albumin/Globulin Ratio 1.3 1.1 - 2.3 [facility] Creatinine 0.9 0.6 - 1.2 mg/dL [facility] Sodium 141 136 - 145 mmol/L [facility] Potassium 3.4(L) 3.5 - 4.5 mmol/L [facility] Chloride 103 98 - 107 mmol/L [facility] CO2 28 22 - 29 mmol/L [facility] Glucose 81 70 - 115 mg/dL [facility] Calcium 9.5 8.4 - 10.2 mg/dL [facility] Protein Total 6.6 6.0 - 8.3 g/dL [facility] Albumin 3.7 3.4 - 5.0 g/dL [facility] Bilirubin Total 0.6 0.2 - 1.2 mg/dL [facility] Alkaline Phosphatase 66 40 - 150 Units/L [facility] ALT 8 0 - 55 Units/L [facility] AST 11 5 - 34 Units/L [facility] eGFR >60 >60 mL/min/1.7 3 m2 [facility] Blood specimen (specimen) BLOOD SPECIMEN / Unknown 10/02/2013 9:51 AM CDT 10/02/2013 10:05 AM CDT Hung Gamez MD LAB - CHEMIS TRY ORDERABLES [address] [phone] * EKG 12-LEAD (10/02/2013 12:00 AM CDT) EKG [facility] Comment: Exam Date/Time: ?? Oct 02 2013 09:25:08 Test Reason : on antidepressant Blood Pressure : / mmHG Vent. Rate : 074 BPM ? Atrial Rate : 074 BPM ?? P-R Int : 176 ms ?QRS Dur : 092 ms ?QT Int : 386 ms ? P-R-T Axes : 075 082 042 degrees ?? QTc Int : 428 ms Normal sinus rhythm Incomplete right bundle branch block Borderline ECG No previous ECGs available Confirmed by GUERO HOLLOWAY, P ([id number]), associate entertainment editor María Elena Thomason ([id number]) on 10/20/2013 2:36:20 PM Referred By: REFERRING NO ? Confirmed By:Albert JACK MD 10/02/2013 Gayatriben Arthur Gamez MD ECG ORDERABL [facility]
--- OUTSIDE RECORDS SUMMARY | 2024-06-18 18:30 | XMS_ITS | Referral Summary ---
Author Organization [facility] Address [address] [place] [address] Care Team Providers Care Natural Resource Officer Name Role Phone Unavailable Primary Care Provider Unavailabl e Source Comments [facility],non-owned Affiliates and Associated Physician Practices is amultiple site organization consisting of ambulatory clinics and hospital sitesin [place], [place]. This disclosure is being madepursuant to the Care Everywhere program and may not contain all information available regarding this patient. Last updated 18.[facility] Active Problems Problem Noted Date Diagnosed Date [...] 10/02/2013 6:30 AM CDT Plan of Treatment Not on file
== END 2024-06-11 22:53 | disposition home or self-care (01) ==
PROVIDERS: Emergency Provider Emergency Medicine
DX: F10.129 Alcohol abuse with intoxication, unspecified (principal); Y90.7 Blood alcohol level of 200-239 mg/100 ml; Z59.00 Homelessness unspecified
CPT/HCPCS: 36415; 71045; 80053; 80307; 81003; 82077; 85025; 93005; 96361; 96372; 99284; J1630; J2060; J7030

== ENCOUNTER 2024-08-01 11:58 | Emergency (ER) | payer BC, OTHER, SELFPAY ==
--- OUTSIDE RECORDS SUMMARY | 2024-08-01 12:03 | XMS_ITS | Patient Health Summary ---
Author Organization [facility] Address [address] [place] [address] Care Team Providers Care Online Health And Fitness Coach Name Role Phone Unavailable Primary Care Provider Unavailabl e Note from [facility],non-owned Affiliates and Associated Physician Practices is amultiple site organization consisting of ambulatory clinics and hospital sitesin [place], [place], [place] and [place]. This disclosure is being madepursuant to the Care Everywhere program and may not contain all information available regarding this patient. Last updated 18.[facility] Active Problems Problem Noted Date Diagnosed [...] 80 10/05/2013 9:00 AM CDT Temperature 36.2 C (97.2 F) 10/05/2013 9:00 AM CDT Respiratory Rate 18 10/05/2013 9:00 AM CDT [...] of2 resultswithin the time period is included. Pathologist [facility] Amphetamines Screen Urine Negative Negative: < 1000 ng/mL [facility] Barbiturates Screen Urine Negative Negative: < 200 ng/mL [facility] Benzodiazepine Screen Urine Negative Negative: < 200 ng/mL [facility] Opiates Urine Negative Negative: < 300 ng/mL [facility] Cocaine Metabolites Urine Negative Negative: < 300 ng/mL [facility] Phencyclidine Screen Urine Negative Negative: < 25 ng/ml [facility] Cannabinoids Screen Urine Negative Negative: <50 ng/mL [facility] Methadone Screen Urine Negative Negative: < 300 ng/mL [facility] Urine specimen (specimen) URINE / Unknown 10/04/2013 8:16 AM CDT 10/04/2013 8:30 AM CDT Narrative [facility] - 10/04/2013 9:27 AM CDT The Urine Toxicology Screening Panel does not screen for Propoxyphene, Meprobamate, Carisoprodol, Trazodone, hhmd-wve-wyvbifc medications and/or volatiles (Acetone, Isopropanol, Methanol or Ethylene Glycol). Ethanol, Salicylate, Acetaminophen, Tricyclic Antidepressants and several therapeutic drugs may be individually assayed in serum or plasma specimen. Toxicology testing by the [facility] is an aid to medical diagnosis and treatment of patients. No documented chain of custody was maintained. Results are intended to be used for clinical purposes only. Desiree Holden MD LAB - URINE CHEMISTR Y ORDERABLES [address] [phone] * (ABNORMAL) URINALYSIS REFLEX TO MICROSCOPIC NO CULTURE (10/02/2013 6:30 PM CDT) Color UA Yellow Straw, Yellow, Colorless, Light Yellow [facility] Clarity UA Clear Clear [facility] Specific [place] UA 1.012 1.001 - 1.030 [facility] pH UA 6.5 5.0 - 8.0 [facility] Protein UA Negative <=20 mg/dL [facility] Glucose UA Negative Negative mg/dL [facility] Ketone UA Negative Negative mg/dL [facility] Bilirubin UA Negative Negative mg/dL [facility] Blood UA Negative Negative [facility] Nitrite UA Negative Negative [facility] Leukocyte Esterase Negative Negative [facility] Urobilinogen UA <2.0 <2.0 mg/dL [facility] RBC UA 3 0 - 8 /HPF [facility] WBC UA <1 0 - 2 /HPF [facility] Mucus UA Many(A) None /LPF [facility] Urine specimen (specimen) 10/02/2013 6:30 PM CDT 10/02/2013 6:52 PM CDT Hung Gamez MD LAB - URINAL YSIS ORDERABLES [address] [phone] * (ABNORMAL) CBC W AUTO DIFFERENTIAL (10/02/2013 9:51 AM CDT) Only the most recent of2 resultswithin the time period is included. WBC 7.3 3.5 - 10.5 10 3/uL [facility] RBC 5.13 4.30 - 5.70 10 6/uL [facility] Hemoglobin 16.0 13.5 - 17.5 g/dL [facility] Hematocrit 44.3 39.0 - 50.0 % [facility] MCV 86.4 81.0 - 97.0 fL [facility] MCH 31.2 28.0 - 34.0 pg [facility] MCHC 36.1(H) 32.0 - 36.0 g/dL [facility] Platelet Count 159 150 - 400 10 3/uL [facility] RDW-SD 38.9 36.0 - 50.0 fL [facility] RDW-CV 12.4 11.2 - 14.8 % [facility] MPV 11.0 9.3 - 12.8 fL [facility] Neutrophils % 65.9 35.0 - 70.0 % [facility] Lymphocytes % 23.4 19.7 - 55.1 % [facility] Monocytes % 9.3 3.0 - 15.0 % [facility] Eosinophils % 1.1 0.0 - 6.0 % [facility] Basophil % 0.3 0.0 - 1.5 % [facility] Neutrophils Absolute 4.8 1.6 - 7.0 10 3/uL [facility] Lymphocyte Absolute 1.7 0.8 - 2.9 10 3/uL [facility] Monocytes Absolute 0.68(H) 0.14 - 0.66 10 3/uL [facility] Eosinophils Absolute 0.08 0.00 - 0.22 10 3/uL [facility] Basophils Absolute 0.02 0.00 - 0.06 10 3/uL [facility] Blood specimen (specimen) BLOOD SPECIMEN / Unknown 10/02/2013 9:51 AM CDT 10/02/2013 10:04 AM CDT Hung Gamez MD LAB - HEMATO LOGY ORDERABLES Performing Organization Address City/State/[facility] Co de Phone Number [address] [phone] * (ABNORMAL) COMPREHENSIVE METABOLIC PANEL (10/02/2013 9:51 AM CDT) BUN 11 7 - 26 mg/dL [facility] Anion Gap 13 8 - 18 [facility] BUN/Creatinine Ratio 12 7 - 23 [facility] Osmolality Calculated 276 270 - 300 mOsm/kg [facility] Albumin/Globulin Ratio 1.3 1.1 - 2.3 [facility] Creatinine 0.9 0.6 - 1.2 mg/dL [facility] Sodium 141 136 - 145 mmol/L [facility] Potassium 3.4(L) 3.5 - 4.5 mmol/L [facility] Chloride 103 98 - 107 mmol/L [facility] CO2 28 22 - 29 mmol/L [facility] Glucose 81 70 - 115 mg/dL [facility] Calcium 9.5 8.4 - 10.2 mg/dL [facility] Protein Total 6.6 6.0 - 8.3 g/dL [facility] Albumin 3.7 3.4 - 5.0 g/dL [facility] Bilirubin Total 0.6 0.2 - 1.2 mg/dL [facility] Alkaline Phosphatase 66 40 - 150 Units/L [facility] ALT 8 0 - 55 Units/L [facility] AST 11 5 - 34 Units/L [facility] eGFR >60 >60 mL/min/1.7 3 m2 [facility] Blood specimen (specimen) BLOOD SPECIMEN / Unknown 10/02/2013 9:51 AM CDT 10/02/2013 10:05 AM CDT Hung Gamez MD LAB - CHEMIS TRY ORDERABLES Performing Organization Address City/[facility]/ZIP Co de Phone Number [address] [phone] * EKG 12-LEAD (10/02/2013 12:00 AM CDT) EKG [facility] Comment: Exam Date/Time: Oct 02 2013 09:25:08 Test Reason : on antidepressant Blood Pressure : / mmHG Vent. Rate : 074 BPM Atrial Rate : 074 BPM P-R Int : 176 ms QRS Dur : 092 ms QT Int : 386 ms P-R-T Axes : 075 082 042 degrees QTc Int : 428 ms Normal sinus rhythm Incomplete right bundle branch block Borderline ECG No previous ECGs available Confirmed by GUERO HOLLOWAY, P ([id number]), graphics editor María Elena Thomason ([id number]) on 10/20/2013 2:36:20 PM Referred By: REFERRING NO Confirmed By:Albert JACK MD 10/02/2013 Hung Gamez MD ECG ORDERABL ES Performing Organization Address City/[facility]/ZIP Co de Phone Number [facility]
--- OUTSIDE RECORDS SUMMARY | 2024-08-01 12:03 | XMS_ITS | Referral Summary ---
Author Organization [facility] Address [address] [place] [address] Care Team Providers Care Route Cdl Driver Name Role Phone Unavailable Primary Care Provider Unavailabl e Source Comments [facility],non-owned Affiliates and Associated Physician Practices is amultiple site organization consisting of ambulatory clinics and hospital sitesin [place], [place], [place] and [place]. This disclosure is being madepursuant to the Care Everywhere program and may not contain all information available regarding this patient. Last updated 18.[facility] [employer] Active Problems Problem Noted Date Diagnosed Date [...]
--- OUTSIDE RECORDS SUMMARY | 2024-08-01 12:03 | XMS_ITS | Clinical Summary ---
Author Organization [facility] Address [address] [place] [address] Care Team Providers Care Sensor Technician Name Role Phone Unavailable Primary Care Provider Unavailabl e Source Comments [facility] [employer],non-owned Affiliates and Associated Physician Practices is amultiple site organization consisting of ambulatory clinics and hospital sitesin [place], [place], [place] and [place]. This disclosure is being madepursuant to the Care Everywhere program and may not contain all information available regarding this patient. Last updated 18.[facility] [employer] Active Problems Problem Noted Date Diagnosed Date [...] Health Maintenance Due Date Last Done Comments HIV SCREENING 2008 HEPATITIS C SCREENING 08/18/2011 DTAP/TDAP/TD VACCINES (1 - Tdap) 2012 HEPATITIS B VACCINE (1 of 3 - 19+ 3-dose series) 2012 PNEUMOCOCCAL VACCINE (1 of 2 - PCV) 2012 COVID-19 VACCINE (1 - 2023-2 5 season) 2024 INFLUENZA VACCINE (#1) 2024 DEPRESSION SCREENING 06/18/2024 ZOSTER VACCINE (1 of 2) 08/23/2043 HIB VACCINE Aged Out No longer eligi ble based on patient's age to complete this topic HPV VACCINE Aged Out No longer eligi ble based on patient's age to complete this topic MENINGOCOCCAL (Group B) VACCINE Aged Out No longer eligible based on patient's age to complete this topic MENINGOCOCCAL VACCINE Aged Out No mohinder yvonne eligible based on patient's age to complete this topic
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
--- NOTE | 2024-08-01 13:35 | PC.NURSE ---
Pt refused VS on arrival will attempt again
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
--- OUTSIDE RECORDS SUMMARY | 2024-08-01 13:55 | XMS_ITS | Clinical Summary ---
Author Organization [facility] Address [address] [place] [address] Care Team Providers Care Clinical Rehab Liaison Name Role Phone Unavailable Primary Care Provider Unavailabl e Source Comments [facility] [employer],non-owned Affiliates and Associated Physician Practices is amultiple site organization consisting of ambulatory clinics and hospital sitesin [place], [place], [place] and [place]. This disclosure is being madepursuant to the Care Everywhere program and may not contain all information available regarding this patient. Last updated 18.[facility] [employer] Active Problems Problem Noted Date Diagnosed Date [...]
--- OUTSIDE RECORDS SUMMARY | 2024-08-01 13:55 | XMS_ITS | Referral Summary ---
Author Organization [facility] Address [address] [place] [address] Care Team Providers Care Journeyman Plumber Name Role Phone Unavailable Primary Care Provider Unavailabl e Source Comments [facility],non-owned Affiliates and Associated Physician Practices is amultiple site organization consisting of ambulatory clinics and hospital sitesin [place], [place], [place] and [place]. This disclosure is being madepursuant to the Care Everywhere program and may not contain all information available regarding this patient. Last updated 18.[facility] [employer] Active Problems Problem Noted Date Diagnosed Date [...]
--- OUTSIDE RECORDS SUMMARY | 2024-08-01 13:55 | XMS_ITS | Patient Health Summary ---
Author Organization [facility] Address [address] [place] [address] Care Team Providers Care Atmospheric Drier Tender Name Role Phone Unavailable Primary Care Provider Unavailabl e Note from [facility],non-owned Affiliates and Associated Physician Practices is amultiple site organization consisting of ambulatory clinics and hospital sitesin [place], [place], [place] and [place]. This disclosure is being madepursuant to the Care Everywhere program and may not contain all information available regarding this patient. Last updated 18.[facility] Active Problems Problem Noted Date Diagnosed [...] resultswithin the time period is included. Pathologist [facility] Amphetamines Screen Urine Negative Negative: < 1000 ng/mL [facility] Barbiturates Screen Urine Negative Negative: < 200 ng/mL [facility] Benzodiazepine Screen Urine Negative Negative: < 200 ng/mL [facility] Opiates Urine Negative Negative: < 300 ng/mL [facility] Cocaine Metabolites Urine Negative Negative: < 300 ng/mL [facility] Phencyclidine Screen Urine Negative Negative: < 25 ng/ml [facility] Cannabinoids Screen Urine Negative Negative: <50 ng/mL [facility] Methadone Screen Urine Negative Negative: < 300 ng/mL [facility] Urine specimen (specimen) URINE / Unknown 10/04/2013 8:16 AM CDT 10/04/2013 8:30 AM CDT Narrative [facility] - 10/04/2013 9:27 AM CDT The Urine Toxicology Screening Panel does not screen for Propoxyphene, Meprobamate, Carisoprodol, Trazodone, gshj-ijx-rwucytk medications and/or volatiles (Acetone, Isopropanol, Methanol or Ethylene Glycol). Ethanol, Salicylate, Acetaminophen, Tricyclic Antidepressants and several therapeutic drugs may be individually assayed in serum or plasma specimen. Toxicology testing by the [facility] is an aid to medical diagnosis and treatment of patients. No documented chain of custody was maintained. Results are intended to be used for clinical purposes only. Desiree Holden MD LAB - URINE CHEMISTR Y ORDERABLES [address] [phone] * (ABNORMAL) URINALYSIS REFLEX TO MICROSCOPIC NO CULTURE (10/02/2013 6:30 PM CDT) Color UA Yellow Straw, Yellow, Colorless, Light Yellow [facility] Clarity UA Clear Clear [facility] Specific [place] UA 1.012 1.001 - 1.030 [facility] pH UA 6.5 5.0 - 8.0 [facility] Protein UA Negative <=20 mg/dL [facility] Glucose UA Negative Negative mg/dL [facility] Ketone UA Negative Negative mg/dL [facility] Bilirubin UA Negative Negative mg/dL [facility] Blood UA Negative Negative [facility] Nitrite UA Negative Negative [facility] Leukocyte Esterase Negative Negative [facility] Urobilinogen UA <2.0 <2.0 mg/dL [facility] RBC UA 3 0 - 8 /HPF [facility] WBC UA <1 0 - 2 /HPF [facility] Mucus UA Many(A) None /LPF [facility] Urine specimen (specimen) 10/02/2013 6:30 PM CDT 10/02/2013 6:52 PM CDT Hung Gamez MD LAB - URINAL YSIS ORDERABLES [address] [phone] * (ABNORMAL) CBC W AUTO DIFFERENTIAL (10/02/2013 9:51 AM CDT) Only the most recent of2 resultswithin the time period is included. WBC 7.3 3.5 - 10.5 10 3/uL [facility] RBC 5.13 4.30 - 5.70 10 6/uL [facility] Hemoglobin 16.0 13.5 - 17.5 g/dL [facility] Hematocrit 44.3 39.0 - 50.0 % [facility] MCV 86.4 81.0 - 97.0 fL [facility] MCH 31.2 28.0 - 34.0 pg [facility] MCHC 36.1(H) 32.0 - 36.0 g/dL [facility] Platelet Count 159 150 - 400 10 3/uL [facility] RDW-SD 38.9 36.0 - 50.0 fL [facility] RDW-CV 12.4 11.2 - 14.8 % [facility] MPV 11.0 9.3 - 12.8 fL [facility] Neutrophils % 65.9 35.0 - 70.0 % [facility] Lymphocytes % 23.4 19.7 - 55.1 % [facility] Monocytes % 9.3 3.0 - 15.0 % [facility] Eosinophils % 1.1 0.0 - 6.0 % [facility] Basophil % 0.3 0.0 - 1.5 % [facility] Neutrophils Absolute 4.8 1.6 - 7.0 10 3/uL [facility] Lymphocyte Absolute 1.7 0.8 - 2.9 10 3/uL [facility] Monocytes Absolute 0.68(H) 0.14 - 0.66 10 3/uL [facility] Eosinophils Absolute 0.08 0.00 - 0.22 10 3/uL [facility] Basophils Absolute 0.02 0.00 - 0.06 10 3/uL [facility] Blood specimen (specimen) BLOOD SPECIMEN / Unknown 10/02/2013 9:51 AM CDT 10/02/2013 10:04 AM CDT Hung Gamez MD LAB - HEMATO LOGY ORDERABLES Performing Organization Address City/State/[facility] Co de Phone Number [address] [phone] * (ABNORMAL) COMPREHENSIVE METABOLIC PANEL (10/02/2013 9:51 AM CDT) BUN 11 7 - 26 mg/dL [facility] Anion Gap 13 8 - 18 [facility] BUN/Creatinine Ratio 12 7 - 23 [facility] Osmolality Calculated 276 270 - 300 mOsm/kg [facility] Albumin/Globulin Ratio 1.3 1.1 - 2.3 [facility] Creatinine 0.9 0.6 - 1.2 mg/dL [facility] Sodium 141 136 - 145 mmol/L [facility] Potassium 3.4(L) 3.5 - 4.5 mmol/L [facility] Chloride 103 98 - 107 mmol/L [facility] CO2 28 22 - 29 mmol/L [facility] Glucose 81 70 - 115 mg/dL [facility] Calcium 9.5 8.4 - 10.2 mg/dL [facility] Protein Total 6.6 6.0 - 8.3 g/dL [facility] Albumin 3.7 3.4 - 5.0 g/dL [facility] Bilirubin Total 0.6 0.2 - 1.2 mg/dL [facility] Alkaline Phosphatase 66 40 - 150 Units/L [facility] ALT 8 0 - 55 Units/L [facility] AST 11 5 - 34 Units/L [facility] eGFR >60 >60 mL/min/1.7 3 m2 [facility] Blood specimen (specimen) BLOOD SPECIMEN / Unknown 10/02/2013 9:51 AM CDT 10/02/2013 10:05 AM CDT Hung Gamez MD LAB - CHEMIS TRY ORDERABLES Performing Organization Address City/[facility]/ZIP Co de Phone Number [address] [phone] * EKG 12-LEAD (10/02/2013 12:00 AM CDT) EKG [facility] Comment: Exam Date/Time: Oct 02 2013 [...] ECGs available Confirmed by GUERO HOLLOWAY, P ([id number]), fashion editor María Elena Thomason ([id number]) on 10/20/2013 2:36:20 PM Referred By: REFERRING NO Confirmed By:Albert JACK MD 10/02/2013 Hung Gamez MD ECG ORDERABL ES Performing Organization Address City/[facility]/ZIP Co de Phone Number [facility]
[2024-08-01] MEDS: LORazepam (*CRX) 1 MG TABLET PO (13:56)
[2024-08-01 13:59] VITALS: BP 146/94; PULSE 105; RESP 20; TEMP 36.3; O2SAT 96
== END 2024-08-01 15:00 | disposition home or self-care (01) ==
PROVIDERS: Emergency Provider Emergency Medicine
DX: T74.21XA Adult sexual abuse, confirmed, initial encounter (principal); Y07.9 Unspecified perpetrator of maltreatment and neglect
CPT/HCPCS: 99285; A9270

== ENCOUNTER 2024-08-23 21:57 | Emergency (ER) | payer BC, SELFPAY ==
--- NOTE | ~2024-08-23 | XR_ITS ---
Portable chest x-ray Comparison: 06/11/2024 Clinical History: Cough Findings: Suspected subtle patchy left basilar airspace disease. Cardiomediastinal silhouette is st able. Bones and soft tissues are unremarkable. Impression: Suspected subtle patchy left basilar airspace disease. Correlate for atelectasis or pneumonia. Reviewed, dictated and finalized at [facility]. Impression: Suspected subtle patchy left basilar airspace disease. Correlate for atelectasi s or pneumonia.
[2024-08-23 21:58] VITALS: BP 145/88; PULSE 94; RESP 14; TEMP 37.7; O2SAT 100
[2024-08-23 22:05] VITALS: BP 145/88; PULSE 102; PULSE 109; RESP 16; O2SAT 98
--- NOTE | 2024-08-23 22:08 | ED.GENADULT ---
[facility] - General Adult General Chief complaint: Unspecified Stated complaint: Rib pain, recent cold, detoxing Time Seen by Provider: 08/23/24 21:59 Source: patient Mode of arrival: ambulatory Limitations: no limitations History of Present Illness [facility] narrative: This is a 29-year-old male with PMH of who presents to the ED via EMS for chief complaint of cough, congestion and body aches. States that he has had left rib pain. States that he was admitted to she recently for medical stabilization for meth use. States that he has been sober for 4 days. States that he was sick couple of weeks ago then seemed to have gotten better in the interim, however now is starting to have more congestion and aches. States that he has not take anything prior to arrival. Denies chest pain, abdominal pain, nausea, vomiting. Related Data Allergies Allergy/AdvReac Type Severity Reaction Status Date / Time aripiprazole AdvReac Severe SEVERE Verified 08/01/24 13:57 VOMITTING Review of Systems Review of Systems: All systems as dictated in [facility] Social History Social History Substance use type: amphetamines Exam Narrative: GENERAL: Well-appearing, well-nourished, and in no acute distress. HEAD: Normocephalic, atraumatic. EYES: PERRLA and EOMI. ENT: Nares clear, no rhinorrhea or epistaxis. Mucous membranes moist. Oropharynx without tonsillar hypertrophy exudate or other lesions. NECK: Supple. No adenopathy or masses. CHEST: No respiratory distress. Clear to auscultation. No wheezes rales or rhonchi HEART: Regular rate and rhythm. No murmur heard. Normal peripheral pulses. ABDOMEN: Soft, nontender, nondistended, normal active bowel sounds. MSK: Normal range of motion. No edema. SKIN: Warm, dry, no rash. NEURO: Alert and oriented x4. No focal deficits. PSYCH: Normal mood and affect. Course Vital Signs Vital signs: Vital Signs Temperature 99.8 F H 08/23/24 21:58 Pulse Rate 94 08/23/24 21:58 Respiratory Rate 14 08/23/24 21:58 Blood Pressure 145/88 H 08/23/24 21:58 Pulse Oximetry 100 08/23/24 21:58 Oxygen Delivery Room Air 08/23/24 21:58 Temperature 99.8 F H 08/23/24 21:58 Pulse Rate 109 H 08/23/24 22:05 Respiratory Rate 16 08/23/24 22:05 Blood Pressure 145/88 H 08/23/24 22:05 Pulse Oximetry 98 08/23/24 22:05 Oxygen Delivery Room Air 08/23/24 21:58 Medical Decision Making MDM Narrative Medical decision making narrative: This is a 29-year-old male who presents to the ED for chief complaint of body aches, rib pain cough, congestion. Vitals show mildly elevated temperature of 99.8? F. Exam remarkable for the above. Lab work is unremarkable. Viral swabs positive for influenza A. He is stating that he was positive for influenza the previously and seemed to have gotten better for short time. Chest x-ray questionable for secondary pneumonia with possible infiltrate sitting left lung base. Rx for Augmentin given. Patient will be discharged in stable condition. Supportive measures discussed and return precautions given. Patient is understanding and agreeable with plan for discharge with PCP follow-up. Vital Signs Vital Signs: Vital Signs Temperature 99.8 F H 08/23/24 21:58 Pulse Rate 94 08/23/24 21:58 Respiratory Rate 14 08/23/24 21:58 Blood Pressure 145/88 H 08/23/24 21:58 Pulse Oximetry 100 08/23/24 21:58 Oxygen Delivery Room Air 08/23/24 21:58 Temperature 99.8 F H 08/23/24 21:58 Pulse Rate 109 H 08/23/24 22:05 Respiratory Rate 16 08/23/24 22:05 Blood Pressure 145/88 H 08/23/24 22:05 Pulse Oximetry 98 08/23/24 22:05 Oxygen Delivery Room Air 08/23/24 21:58 Lab Data 08/23/24 22:16 08/23/24 22:16 Labs: Lab Results 08/23/24 Range/Units 22:16 WBC 12.1 H (4.5-10.0) K/mm3 RBC 4.42 L (4.6-6.20) M/mm3 Hgb 13.5 L (14.0-18.0) g/dL Hct 39.6 L (42.0-52.0) % MCV 89.6 (80-100) fl MCH 30.5 (26-34) pg MCHC 34.1 (32-36) g/dl RDW 11.9 (11.5-14.5) % Plt Count 368 D (150-375) k/mm3 MPV 9.3 (7.4-10.4) fl Immature Gran % (Auto) 0.5 (0-0.5) % Neut % (Auto) 76.6 H (45.5-73.1) % Lymph % (Auto) 13.7 L (18.3-44.2) % [place] % (Auto) 8.7 H (2.6-8.5) % Eos % (Auto) 0.1 (0-4.4) % Baso % (Auto) 0.4 (0.2-1.2) % Lymph # (Auto) 1.65 (0.9-3.2) K/mm3 [place] # (Auto) 1.1 H (0.1-0.6) K/mm3 Eos # (Auto) 0.0 (0-0.3) K/mm3 Baso # (Auto) 0.1 (0.0-0.1) K/mm3 Abs Immat Gran (auto) 0.06 H (0.00-0.031) K/mm3 Absolute Neuts (auto) 9.3 H (1.3-6.7) K/mm3 Absolute Nucleated RBC 0.000 (0.0-0.012) K/mm3 Nucleated RBC % 0.0 (0.0-0.2) % Sodium 136 L (137-145) mmol/L Potassium 3.6 (3.4-5.0) mmol/L Chloride 101 (98-107) mmol/L Carbon Dioxide 28 (22-30) mmol/L Anion Gap 7 (4-12) mmol/L BUN 22 H (9-20) mg/dL Creatinine 0.59 L (0.7-1.3) mg/dL Estim Creat Clear Calc 153 ml/min Estimated GFR > 60 (59 - ) Glucose 158 H (65-110) mg/dL Calcium 8.4 (8.4-10.2) mg/dL Influenza A (RT-PCR) Positive A (Negative) Influenza B (RT-PCR) Negative (Negative) RSV (RT-PCR) Negative (Negative) SARS-CoV-2 RNA (RT-PCR) Negative (Negative) Discharge Plan Discharge Clinical Impression: Pneumonia, Influenza A Patient Disposition: Home, Self-Care Condition: Stable Instructions: Antibiotic Form Additional Instructions: Your exam and chest x-ray shows possible pneumonia. Please take antibiotics as prescribed follow-up with PCP. Symptoms should resolve over the next week to 2 weeks. If you have any new or worsening symptoms please return to the ER for further evaluation. Patient Language: Mongolian Prescriptions: New amoxicillin-pot clavulanate 875-125 mg tablet 1 tablet PO Q12H Qty: 14 0RF Follow-up/Referrals: UNKNOWN,DOCTOR [Primary Care Provider] - Time of Disposition: 23:01
--- OUTSIDE RECORDS SUMMARY | 2024-08-23 22:12 | XMS_ITS | Clinical Summary ---
Author Organization [facility] Address [address] [place] [address] Care Team Providers Care Dressage Instructor Name Role Phone Unavailable Primary Care Provider Unavailabl e Source Comments [facility],non-owned Affiliates and Associated Physician Practices is amultiple site organization consisting of ambulatory clinics and hospital sitesin [place], [place], [place] and [place]. This disclosure is being madepursuant to the Care Everywhere program and may not contain all information available regarding this patient. Last updated 18.[facility] Active Problems Problem Noted Date Diagnosed Date [...]
--- OUTSIDE RECORDS SUMMARY | 2024-08-23 22:12 | XMS_ITS | Patient Health Summary ---
Author Organization [facility] Address [address] [place] [address] Care Team Providers Care Slope Hoist Operator Name Role Phone Unavailable Primary Care Provider Unavailabl e Note from [facility],non-owned Affiliates and Associated Physician Practices is amultiple site organization consisting of ambulatory clinics and hospital sitesin [place], [place], [place] and [place]. This disclosure is being madepursuant to the Care Everywhere program and may not contain all information available regarding this patient. Last updated 18.[facility] Active Problems Problem Noted Date [...] resultswithin the time period is included. Pathologist [facility] Amphetamines Screen Urine Negative Negative: < 1000 ng/mL [facility] Barbiturates Screen Urine Negative Negative: < 200 ng/mL [facility] Benzodiazepine Screen Urine Negative Negative: < 200 ng/mL [facility] Opiates Urine Negative Negative: < 300 ng/mL [facility] Cocaine Metabolites Urine Negative Negative: < 300 ng/mL [facility] Phencyclidine Screen Urine Negative Negative: < 25 ng/ml [facility] Cannabinoids Screen Urine Negative Negative: <50 ng/mL [facility] Methadone Screen Urine Negative Negative: < 300 ng/mL [facility] Urine specimen (specimen) URINE / Unknown 10/04/2013 8:16 AM CDT 10/04/2013 8:30 AM CDT Narrative [facility] - 10/04/2013 9:27 AM CDT The Urine Toxicology Screening Panel does not screen for Propoxyphene, Meprobamate, Carisoprodol, Trazodone, [id number] medications and/or volatiles (Acetone, Isopropanol, Methanol or Ethylene Glycol). Ethanol, Salicylate, Acetaminophen, Tricyclic Antidepressants and several therapeutic drugs may be individually assayed in serum or plasma specimen. Toxicology testing by the [facility] is an aid to medical diagnosis and treatment of patients. No documented chain of custody was maintained. Results are intended to be used for clinical purposes only. Desiree Holden MD LAB - URINE CHEMISTR Y ORDERABLES [address] [phone] * (ABNORMAL) URINALYSIS REFLEX TO MICROSCOPIC NO CULTURE (10/02/2013 6:30 PM CDT) Color UA Yellow Straw, Yellow, Colorless, Light Yellow [facility] Clarity UA Clear Clear [facility] Specific [place] UA 1.012 1.001 - 1.030 [facility] pH UA 6.5 5.0 - 8.0 [facility] Protein UA Negative <=20 mg/dL [facility] Glucose UA Negative Negative mg/dL [facility] Ketone UA Negative Negative mg/dL [facility] Bilirubin UA Negative Negative mg/dL [facility] Blood UA Negative Negative [facility] Nitrite UA Negative Negative [facility] Leukocyte Esterase Negative Negative [facility] Urobilinogen UA <2.0 <2.0 mg/dL [facility] RBC UA 3 0 - 8 /HPF [facility] WBC UA <1 0 - 2 /HPF [facility] Mucus UA Many(A) None /LPF [facility] Urine specimen (specimen) 10/02/2013 6:30 PM CDT 10/02/2013 6:52 PM CDT Hung Gamez MD LAB - URINAL YSIS ORDERABLES [address] [phone] * (ABNORMAL) CBC W AUTO DIFFERENTIAL (10/02/2013 9:51 AM CDT) Only the most recent of2 resultswithin the time period is included. WBC 7.3 3.5 - 10.5 10 3/uL [facility] RBC 5.13 4.30 - 5.70 10 6/uL [facility] Hemoglobin 16.0 13.5 - 17.5 g/dL [facility] Hematocrit 44.3 39.0 - 50.0 % [facility] MCV 86.4 81.0 - 97.0 fL [facility] MCH 31.2 28.0 - 34.0 pg [facility] MCHC 36.1(H) 32.0 - 36.0 g/dL [facility] Platelet Count 159 150 - 400 10 3/uL [facility] RDW-SD 38.9 36.0 - 50.0 fL [facility] RDW-CV 12.4 11.2 - 14.8 % [facility] MPV 11.0 9.3 - 12.8 fL [facility] Neutrophils % 65.9 35.0 - 70.0 % [facility] Lymphocytes % 23.4 19.7 - 55.1 % [facility] Monocytes % 9.3 3.0 - 15.0 % [facility] Eosinophils % 1.1 0.0 - 6.0 % [facility] Basophil % 0.3 0.0 - 1.5 % [facility] Neutrophils Absolute 4.8 1.6 - 7.0 10 3/uL [facility] Lymphocyte Absolute 1.7 0.8 - 2.9 10 3/uL [facility] Monocytes Absolute 0.68(H) 0.14 - 0.66 10 3/uL [facility] Eosinophils Absolute 0.08 0.00 - 0.22 10 3/uL [facility] Basophils Absolute 0.02 0.00 - 0.06 10 3/uL [facility] Blood specimen (specimen) BLOOD SPECIMEN / Unknown 10/02/2013 9:51 AM CDT 10/02/2013 10:04 AM CDT Hung Gamez MD LAB - HEMATO LOGY ORDERABLES Performing Organization Address City/State/[facility] Co de Phone Number [address] [phone] * (ABNORMAL) COMPREHENSIVE METABOLIC PANEL (10/02/2013 9:51 AM CDT) BUN 11 7 - 26 mg/dL [facility] Anion Gap 13 8 - 18 [facility] BUN/Creatinine Ratio 12 7 - 23 [facility] Osmolality Calculated 276 270 - 300 mOsm/kg [facility] Albumin/Globulin Ratio 1.3 1.1 - 2.3 [facility] Creatinine 0.9 0.6 - 1.2 mg/dL [facility] Sodium 141 136 - 145 mmol/L [facility] Potassium 3.4(L) 3.5 - 4.5 mmol/L [facility] Chloride 103 98 - 107 mmol/L [facility] CO2 28 22 - 29 mmol/L [facility] Glucose 81 70 - 115 mg/dL [facility] Calcium 9.5 8.4 - 10.2 mg/dL [facility] Protein Total 6.6 6.0 - 8.3 g/dL [facility] Albumin 3.7 3.4 - 5.0 g/dL [facility] Bilirubin Total 0.6 0.2 - 1.2 mg/dL [facility] Alkaline Phosphatase 66 40 - 150 Units/L [facility] ALT 8 0 - 55 Units/L [facility] AST 11 5 - 34 Units/L [facility] eGFR >60 >60 mL/min/1.7 3 m2 [facility] Blood specimen (specimen) BLOOD SPECIMEN / Unknown 10/02/2013 9:51 AM CDT 10/02/2013 10:05 AM CDT Hung Gamez MD LAB - CHEMIS TRY ORDERABLES Performing Organization Address City/[facility]/ZIP Co de Phone Number [address] [phone] * EKG 12-LEAD (10/02/2013 12:00 AM CDT) EKG [facility] Comment: Exam Date/Time: Oct 02 2013 [...] ECGs available Confirmed by GUERO HOLLOWAY, P ([id number]), photography editor María Elena Thomason ([id number]) on 10/20/2013 2:36:20 PM Referred By: REFERRING NO Confirmed By:Albert JACK MD 10/02/2013 Hung Gamez MD ECG ORDERABL ES Performing Organization Address City/[facility]/ZIP Co de Phone Number [facility]
--- OUTSIDE RECORDS SUMMARY | 2024-08-23 22:12 | XMS_ITS | Referral Summary ---
Author Organization [facility] Address [address] [place] [address] Care Team Providers Care Greenskeeper Name Role Phone Unavailable Primary Care Provider Unavailabl e Source Comments [facility],non-owned Affiliates and Associated Physician Practices is amultiple site organization consisting of ambulatory clinics and hospital sitesin [place], [place], [place] and [place]. This disclosure is being madepursuant to the Care Everywhere program and may not contain all information available regarding this patient. Last updated 18.[facility] [employer] Active Problems Problem Noted Date Diagnosed Date [...]
[2024-08-23] MEDS: IBUPROFEN 400 MG TABLET 800 MG PO (22:13)
[2024-08-23] MEDS: ACETAMINOPHEN 500 MG TABLET 1000 MG PO (22:13)
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
[2024-08-23 22:25] LABS: Basophils Absolute Auto 0.1 K/mm3 (0.0-0.1); Basophils Percent Auto 0.4 % (0.2-1.2); Eosinophils Percent Auto 0.1 % (0-4.4); Hematocrit 39.6 % (42.0-52.0); Hemoglobin 13.5 g/dL (14.0-18.0); Immature Granulocyte Absolute 0.06 K/mm3 (0.00-0.031); Immature Granulocyte Percent A 0.5 % (0-0.5); Lymphocytes Absolute Auto 1.65 K/mm3 (0.9-3.2); Lymphocytes Percent Auto 13.7 % (18.3-44.2); Mean Corpuscular HGB Conc 34.1 g/dl (32-36); Mean Corpuscular Hemoglobin 30.5 pg (26-34); Mean Corpuscular Volume 89.6 fl (80-100); Mean Platelet Volume 9.3 fl (7.4-10.4); Monocytes Absolute Auto 1.1 K/mm3 (0.1-0.6); Monocytes Percent Auto 8.7 % (2.6-8.5); Neutrophils Absolute Auto 9.3 K/mm3 (1.3-6.7); Neutrophils Percent Auto 76.6 % (45.5-73.1); Platelet Count Result 368 k/mm3 (150-375); Red Blood Count 4.42 M/mm3 (4.6-6.20); Red Cell Distribution Width 11.9 % (11.5-14.5); White Blood Count 12.1 K/mm3 (4.5-10.0)
[2024-08-23 22:32] LABS: Anion Gap 7 mmol/L (4-12); Blood Urea Nitrogen 22 mg/dL (9-20); Calcium 8.4 mg/dL (8.4-10.2); Carbon Dioxide 28 mmol/L (22-30); Chloride 101 mmol/L (98-107); Estimated CRCL calculation 153 ml/min; Estimated Glomerular Filt Rate > 60; Glucose 158 mg/dL (65-110); Potassium 3.6 mmol/L (3.4-5.0); Sodium 136 mmol/L (137-145)
[2024-08-23 22:57] LABS: Influenza A QL RT-PCR Positive (Negative); Influenza B QL RT-PCR Negative (Negative); RSV RNA, RT-PCR Negative (Negative); SARS-CoV-2 RNA PCR Negative (Negative)
[2024-08-23] MEDS: AMOXICILLIN/CLAVULANATE K 875-125 MG TAB 1 TABLET PO (23:17)
--- NOTE | 2024-08-23 23:28 | PC.NURSE ---
upon discharge patient began to have elevated tone with this RN and questioned why he was being discharged. this rn provided discharge instructions and discharge paperwork and explanation of visit. pt began to demand a sandwich, ct scan, folic acid, and prescription discharge medication. ed security at bedside.
== END 2024-08-23 23:36 | disposition home or self-care (01) ==
PROVIDERS: Emergency Provider Physician Assistant
DX: J10.00 Influenza due to other identified influenza virus with unspecified type of pneumonia (principal); Z20.822 Contact with and (suspected) exposure to COVID-19
CPT/HCPCS: 36415; 71045; 80048; 85025; 87637; 99284; A9270